=== PATIENT | male | born 1970 | race Caucasian/White ===

== ENCOUNTER 2025-03-25 10:32 | Emergency (ER) | payer BC ==
[~2025-03-25] VITALS: Ht 180.3 cm; Wt 112.5 kg
[2025-03-25] MEDS ORDERED: Piperacillin Sodium/Tazobact 50 ML IV ONE (11:40)
[2025-03-25] MEDS ORDERED: SODIUM CHLORIDE 0.9% 1,000 ML IV SCH (11:40)
[2025-03-25 12:05] LABS: BASO % 0.2 % (0.0-1.0); EOS % 0.2 % (1.0-4.0); HEMATOCRIT 42.6 % (42.0-52.0); MEAN CELL VOLUME 88.6 fl (80.0-94.0); MEAN CORPUSCULAR HGB 31.6 pg (27.0-31.0); MEAN CORPUSCULAR HGB CONC 35.7 g/dl (33.0-37.0); MEAN PLATELET VOLUME 9.8 fl (9.6-12.3); MONO # 0.7 10*3/uL (0.1-1.0); MONO % 14.5 % (3.0-9.0); NEUT # 3.8 10*3/uL (2.3-7.9); NEUT % 76.9 % (47.0-73.0); PLATELET COUNT AUTOMATED 187 10*3/uL (130-400); RED BLOOD COUNT 4.81 10*6/uL (4.50-5.90); RED CELL DISTRI WIDTH 12.1 % (0-14.5); WHITE BLOOD COUNT 4.9 10*3/uL (4.8-10.8)
[2025-03-25 12:32] LABS: ALKALINE PHOSPHATASE 208 U/L (46-116); BUN 12 mg/dl (9-23); CHLORIDE 95 mmol/L (98-107); POTASSIUM 3.3 mmol/L (3.4-5.1); SGPT/ALT 180 U/L (5-49); TOTAL PROTEIN 7.7 gm/dL (6.0-8.0)
[2025-03-25] MEDS ORDERED: ACETAMINOPHEN 325 MG TAB PO ONE (12:55)
[2025-03-25] MEDS ORDERED: IBUPROFEN 600 MG TAB PO ONE (12:55)
[2025-03-25] MEDS ORDERED: VIBRAMYCIN100 MG PO (14:33)
[2025-03-25] MEDS ORDERED: Doxycycline Hyclate 100 MG CAPSULE PO ONE (14:35)
== END 2025-03-25 14:39 | disposition home or self-care (01) ==
LOC: ED 10:32
PROVIDERS: Nurse Practitioner Family
DX: S81.801A Unspecified open wound, right lower leg, initial encounter (principal); L08.9 Local infection of the skin and subcutaneous tissue, unspecified; X58.XXXA Exposure to other specified factors, initial encounter; Y93.89 Activity, other specified; Y92.89 Other specified places as the place of occurrence of the external cause; Y99.8 Other external cause status